=== PATIENT | female | born 1970 | race Hispanic/Latino ===

== ENCOUNTER 2018-06-13 04:05 | Emergency (ER) | payer SELFPAY ==
--- NOTE | 2018-06-13 08:59 | RAD ---
CHEST 1 VIEW: Date: 06/13/18 HISTORY: Cough. COMPARISON: 05/24/12. FINDINGS: Heart size is normal. The lungs are clear. No pneumonia, edema, pleural effusion, or other acute proc ess. IMPRESSION: No acute intrathoracic disease. Stable from prior study. No evidence for pneumonia. POS: [facility]
== END 2018-06-13 06:55 | disposition home or self-care (01) ==
LOC: ERS 04:05
DX: J06.9 Acute upper respiratory infection, unspecified (principal)
CPT/HCPCS: 71045; 87804